=== PATIENT | female | born 1955 | race Caucasian/White ===

== ENCOUNTER 2017-04-14 21:09 | Emergency (ER) | payer BC ==
[2017-04-14 21:23] VITALS: BP 228/128; PULSE 96; TEMP 98.6; BMI 28.1
[2017-04-14] MEDS ORDERED: AMOX TR/POT CLAV 875MG/125MG TABLETS (FP) PO ONE (22:26)
--- NOTE | 2017-04-14 22:26 | PDOC ---
History of Present Illness - General Chief Complaint: Redness To Affected Area Stated Complaint: RH 1ST FINGER REDNESS Time Seen by Provider: 04/14/17 21:15 Past History - Past Medical History Allergies/Adverse Reactions: Allergies Allergy/AdvReac Type Severity Reaction Status Date / Time No Known Allergies Allergy Unverified 04/14/17 21:10 Home Medications: Ambulatory Orders Amox-Tr/K Cl [Augmentin - 875Mg Tablet] 1 tab PO BID #14 tablet 04/14/17 COPD: No - Suicide/Smoking/Psychosocial Hx Smoking History: Current some day smoker Information on smoking cessation initiated: Yes 'Breaking Loose' booklet given: 04/14/17 *Physical Exam - Vital Signs Last Vital Signs Temp Pulse Resp BP Pulse Ox 98.6 F 96 H 16 228/128 100 04/14/17 21:11 04/14/17 21:11 04/14/17 21:11 04/14/17 21:11 04/14/17 21:11 *DC/Admit/Observation/Transfer Diagnosis at time of Disposition: Paronychia of right thumb - Discharge Dispostion Disposition: HOME Condition at time of disposition: Stable - Referrals Referrals: Arthur Kevin MD [Staff Physician] - - Patient Instructions Printed Discharge Instructions: Paronychia Additional Instructions: Augmentin 875/125 twice a day for one week (take with food) Warm soaks to right thumb for 15 minutes at least 3 times a day Return to ER immediately if you have worsening pain with movement, fever or red streaking Follow-up with your general doctor or hand surgeon (Dr. Kevin) within 5-7 days for drainage as discussed - Post Discharge Activity
[2017-04-14] MEDS ORDERED: AMOX TR/POT CLAV 875MG/125MG TABLETS (FP) ONE (22:32)
== END 2017-04-14 22:40 | disposition home or self-care (01) ==
LOC: FER 21:09
DX: L03.011 Cellulitis of right finger (principal); F17.210 Nicotine dependence, cigarettes, uncomplicated
CPT/HCPCS: 99281-25

== ENCOUNTER 2022-01-08 14:47 | Observation (INO) | payer BC ==
[2022-01-08 18:31] LABS: BASO % 0.5 % (0-2.0); EOS % 0.8 % (0-4.5); HEMATOCRIT 18.7 % (32.4-45.2); LYMPH % 15.3 % (8-40); MCHC 30.4 g/dl (32.0-36.0); MEAN CELL VOLUME 59.4 fl (80-96); MEAN PLT VOLUME 8.4 fl (7.5-11.1); MONO % 10.3 % (3.8-10.2); NEUT % 73.1 % (42.8-82.8); PLATELET COUNT 312 10^3/uL (134-434); RBC 3.14 M/mm3 (3.60-5.2); RDW 19.3 % (11.6-15.6); WHITE BLOOD COUNT 8.9 K/mm3 (4.0-10.0)
[2022-01-08 18:33] LABS: MCH 18.1 pg (25.7-33.7)
[2022-01-08 18:34] LABS: HEMOGLOBIN 5.7 GM/dL (10.7-15.3)
[2022-01-08 18:48] LABS: CALCIUM 9.2 mg/dL (8.5-10.1)
[2022-01-08 18:49] LABS: ALBUMIN 3.3 g/dl (3.4-5.0)
[2022-01-08 18:52] LABS: CREATININE 0.8 mg/dL (0.55-1.3)
[2022-01-08 18:54] LABS: BILIRUBIN,TOTAL 0.2 mg/dL (0.2-1); TOT PROT 6.7 g/dl (6.4-8.2)
[2022-01-08 18:55] LABS: ANISOCYTOSIS 3+; MACROCYTOSIS 0; TARGET CELLS 2+
[2022-01-08] MEDS ORDERED: DOCUSATE SODIUM 100 MG CAPSULE (FP) PO PRN (23:19)
[2022-01-08] MEDS ORDERED: FAMOTIDINE 20 MG/50 ML IVPB 20 MG/50 ML MG IVPB ONE (23:28)
[2022-01-09] MEDS ORDERED: FAMOTIDINE 20 MG/50 ML IVPB 20 MG/50 ML MG IVPB ONE (02:30)
[2022-01-09] MEDS ORDERED: ACETAMINOPHEN 325 MG TABLET (FP) PO PRN (07:25)
[2022-01-09 08:25] LABS: BASO % 1.1 % (0-2.0); EOS % 2.1 % (0-4.5); HEMATOCRIT 27.8 % (32.4-45.2); HEMOGLOBIN 8.8 GM/dL (10.7-15.3); LYMPH % 18.3 % (8-40); MCH 21.1 pg (25.7-33.7); MCHC 31.6 g/dl (32.0-36.0); MEAN CELL VOLUME 66.5 fl (80-96); MEAN PLT VOLUME 8.2 fl (7.5-11.1); MONO % 9.1 % (3.8-10.2); NEUT % 69.4 % (42.8-82.8); PLATELET COUNT 307 10^3/uL (134-434); RBC 4.19 M/mm3 (3.60-5.2); RDW 27.3 % (11.6-15.6); RETICULOCYTES 1.56 % (0.5-1.5); WHITE BLOOD COUNT 7.4 K/mm3 (4.0-10.0)
[2022-01-09 08:33] LABS: INR 1.03 (0.83-1.09); PROTHROMBIN TIME (PATIENT) 11.8 SEC (9.7-13.0)
[2022-01-09 08:34] LABS: ACTIVATED PTT 26.9 SECONDS (25.2-36.5)
[2022-01-09 08:54] LABS: BLOOD UREA NITROGEN 12.6 mg/dL (7-18)
[2022-01-09 08:55] LABS: CALCIUM 9.3 mg/dL (8.5-10.1)
[2022-01-09 08:56] LABS: MAGNESIUM 2.4 mg/dL (1.8-2.4); PHOSPHOROUS 3.2 mg/dL (2.5-4.9)
[2022-01-09 08:58] LABS: CREATININE 0.8 mg/dL (0.55-1.3)
[2022-01-09] MEDS: DEXTROSE 5%-NORMAL SALINE 1,000 ML IV SCH (09:09)
[2022-01-09] MEDS: amLODIPine BESYLATE 5 MG TABLET (FP) PO SCH (09:14)
[2022-01-09] MEDS ORDERED: IRON SUCROSE INJECTION 200 MG in SODIUM CHLORIDE 90 ML IVPB ONE (10:30)
[2022-01-09 11:05] LABS: ALBUMIN 3.6 g/dl (3.4-5.0)
[2022-01-09] MEDS: hydrALAZINE HCL 20 MG/ML VIAL IM PRN ×2 (11:06→21:32)
[2022-01-09 11:08] LABS: BILIRUBIN,DIRECT 0.3 mg/dL (0.0-0.2)
[2022-01-09 11:10] LABS: BILIRUBIN,TOTAL 1.2 mg/dL (0.2-1); TOT PROT 7.3 g/dl (6.4-8.2)
[2022-01-09 11:34] LABS: EPI CELLS 18 /uL (0-25.1); HYALINE CASTS 1 /uL (0-3.1); PH,URINE 7.5 (5.0-8.0); URINE APPEARANCE CLOUDY; URINE BACTERIA 679 /uL (0-1359); URINE BILIRUBIN NEGATIVE (NEGATIVE); URINE COLOR YELLOW; URINE GLUCOSE (UA) NEGATIVE (NEGATIVE); URINE KETONE NEGATIVE (NEGATIVE); URINE LEUK ESTERASE 3+ (NEGATIVE); URINE NITRITE NEGATIVE (NEGATIVE); URINE PROTEIN NEGATIVE (NEGATIVE); URINE RBC 11 /uL (0-23.9); URINE UROBILINOGEN 0.2 mg/dL (0.2-1.0); URINE WBC 160 /uL (0-25.8)
[2022-01-09] MEDS: LOSARTAN POTASSIUM 50 MG TABLET PO SCH (14:18)
[2022-01-09 19:43] LABS: EPI CELLS 6 /uL (0-25.1); HYALINE CASTS 1 /uL (0-3.1); PH,URINE 6.5 (5.0-8.0); URINE APPEARANCE Error; URINE BACTERIA 457 /uL (0-1359); URINE BILIRUBIN NEGATIVE (NEGATIVE); URINE COLOR DK YELLOW; URINE GLUCOSE (UA) NEGATIVE (NEGATIVE); URINE KETONE NEGATIVE (NEGATIVE); URINE LEUK ESTERASE 3+ (NEGATIVE); URINE NITRITE NEGATIVE (NEGATIVE); URINE PROTEIN NEGATIVE (NEGATIVE); URINE RBC 36 /uL (0-23.9); URINE WBC 208 /uL (0-25.8)
[2022-01-09 20:07] LABS: PHENCYCLIDINE,URINE NEGATIVE (NEGATIVE); URINE BARBITURATES NEGATIVE (NEGATIVE); URINE BENZODIAZEPINES NEGATIVE (NEGATIVE)
[2022-01-09 20:09] LABS: COCAINE, UR NEGATIVE (NEGATIVE); OPIATES, URI NEGATIVE (NEGATIVE)
[2022-01-09 20:16] LABS: METHADONE, UR NEGATIVE (NEGATIVE); URINE AMPHETAMINES NEGATIVE (NEGATIVE)
[2022-01-09] MEDS: THIAMINE HCL 200 MG/2 ML VIAL IVPB SCH (21:32)
[2022-01-09] MEDS: PANTOPRAZOLE 40 MG TABLET PO SCH (21:33)
[2022-01-09] MEDS: POLYETHYLENE GLYCOL (HEALTHYLAX) 3350 17 GM PACKET PO SCH (21:33)
[2022-01-10] MEDS: THIAMINE HCL 200 MG/2 ML VIAL IVPB SCH ×3 (05:28→20:18)
[2022-01-10 09:21] LABS: BASO % 1.2 % (0-2.0); EOS % 1.2 % (0-4.5); HEMATOCRIT 27.1 % (32.4-45.2); HEMOGLOBIN 8.5 GM/dL (10.7-15.3); LYMPH % 13.1 % (8-40); MCH 20.5 pg (25.7-33.7); MCHC 31.3 g/dl (32.0-36.0); MEAN CELL VOLUME 65.6 fl (80-96); MEAN PLT VOLUME 8.7 fl (7.5-11.1); MONO % 6.9 % (3.8-10.2); NEUT % 77.6 % (42.8-82.8); PLATELET COUNT 287 10^3/uL (134-434); RBC 4.13 M/mm3 (3.60-5.2); WHITE BLOOD COUNT 8.5 K/mm3 (4.0-10.0)
[2022-01-10 09:52] LABS: CALCIUM 9.1 mg/dL (8.5-10.1)
[2022-01-10 09:53] LABS: ALBUMIN 3.5 g/dl (3.4-5.0); BLOOD UREA NITROGEN 11.6 mg/dL (7-18)
[2022-01-10 09:57] LABS: BILIRUBIN,TOTAL 1.2 mg/dL (0.2-1); CREATININE 0.8 mg/dL (0.55-1.3)
[2022-01-10 09:58] LABS: TOT PROT 6.8 g/dl (6.4-8.2)
[2022-01-10] MEDS ORDERED: THIAMINE HCL 100 MG TABLET (FP) PO SCH (10:00)
[2022-01-10] MEDS: PANTOPRAZOLE 40 MG TABLET PO SCH ×2 (10:05→21:21)
[2022-01-10] MEDS: amLODIPine BESYLATE 5 MG TABLET (FP) PO SCH (10:05)
[2022-01-10] MEDS: POLYETHYLENE GLYCOL (HEALTHYLAX) 3350 17 GM PACKET PO SCH ×2 (10:05→21:21)
[2022-01-10] MEDS: LOSARTAN POTASSIUM 50 MG TABLET PO SCH (10:05)
[2022-01-10] MEDS: DEXTROSE 5%-NORMAL SALINE 1,000 ML IV SCH ×2 (12:19→21:23)
[2022-01-11] MEDS ORDERED: traMADol HCL 50 MG TABLET PO ONE (04:00)
[2022-01-11] MEDS: THIAMINE HCL 200 MG/2 ML VIAL IVPB SCH ×3 (04:02→22:12)
[2022-01-11 07:58] LABS: INR 1.04 (0.83-1.09)
[2022-01-11] MEDS ORDERED: PEG 3350/NA SULF BICARB CL/KCL 4000 ML SOLN.RECON PO ONE ×2 (09:00→17:00)
[2022-01-11] MEDS ORDERED: CEFTRIAXONE 1,000 GM in DEXTROSE 5%-WATER - 50 ML IVPB SCH (10:00)
[2022-01-11] MEDS: LOSARTAN POTASSIUM 50 MG TABLET PO SCH (10:20)
[2022-01-11] MEDS: DEXTROSE 5%-NORMAL SALINE 1,000 ML IV SCH (10:20)
[2022-01-11] MEDS: amLODIPine BESYLATE 5 MG TABLET (FP) PO SCH (10:20)
[2022-01-11] MEDS: PANTOPRAZOLE 40 MG TABLET PO SCH ×2 (10:20→22:12)
[2022-01-11] MEDS: POLYETHYLENE GLYCOL (HEALTHYLAX) 3350 17 GM PACKET PO SCH ×2 (10:20→22:12)
[2022-01-11 10:25] LABS: ALBUMIN 3.6 g/dl (3.4-5.0)
[2022-01-11 10:27] LABS: BILIRUBIN,DIRECT 0.7 mg/dL (0.0-0.2)
[2022-01-11 10:29] LABS: TOT PROT 7.2 g/dl (6.4-8.2)
[2022-01-11 10:30] LABS: BILIRUBIN,TOTAL 1.4 mg/dL (0.2-1)
[2022-01-11] MEDS ORDERED: IRON SUCROSE INJECTION 200 MG in SODIUM CHLORIDE 90 ML IVPB ONE (15:00)
[2022-01-11] MEDS ORDERED: BISACODYL 5 MG TABLET.DR (FP) PO ONE (16:00)
[2022-01-12] MEDS: THIAMINE HCL 200 MG/2 ML VIAL IVPB SCH ×2 (04:54→13:05)
[2022-01-12 09:02] LABS: INR 1.08 (0.83-1.09); PROTHROMBIN TIME (PATIENT) 12.4 SEC (9.7-13.0)
[2022-01-12 09:07] LABS: BASO % 1.1 % (0-2.0); EOS % 1.5 % (0-4.5); HEMATOCRIT 26.8 % (32.4-45.2); HEMOGLOBIN 8.5 GM/dL (10.7-15.3); LYMPH % 15.5 % (8-40); MCH 21.1 pg (25.7-33.7); MCHC 31.9 g/dl (32.0-36.0); MEAN CELL VOLUME 66.3 fl (80-96); MEAN PLT VOLUME 8.3 fl (7.5-11.1); NEUT % 72.9 % (42.8-82.8); PLATELET COUNT 221 10^3/uL (134-434); RBC 4.04 M/mm3 (3.60-5.2); RDW 28.9 % (11.6-15.6); WHITE BLOOD COUNT 5.7 K/mm3 (4.0-10.0)
[2022-01-12 09:24] LABS: ALBUMIN 3.5 g/dl (3.4-5.0); CALCIUM 9.1 mg/dL (8.5-10.1)
[2022-01-12 09:25] LABS: BLOOD UREA NITROGEN 7.3 mg/dL (7-18)
[2022-01-12 09:27] LABS: BILIRUBIN,DIRECT 0.5 mg/dL (0.0-0.2)
[2022-01-12 09:28] LABS: CREATININE 0.7 mg/dL (0.55-1.3)
[2022-01-12 09:29] LABS: TOT PROT 6.9 g/dl (6.4-8.2)
[2022-01-12] MEDS: LOSARTAN POTASSIUM 50 MG TABLET PO SCH (09:35)
[2022-01-12] MEDS: DEXTROSE 5%-NORMAL SALINE 1,000 ML IV SCH (09:35)
[2022-01-12] MEDS: PANTOPRAZOLE 40 MG TABLET PO SCH ×2 (09:35→21:02)
[2022-01-12] MEDS: amLODIPine BESYLATE 5 MG TABLET (FP) PO SCH (09:35)
[2022-01-12] MEDS: POLYETHYLENE GLYCOL (HEALTHYLAX) 3350 17 GM PACKET PO SCH ×2 (09:35→21:02)
[2022-01-12 09:51] LABS: ANISOCYTOSIS 3+; MACROCYTOSIS 0
[2022-01-12] MEDS: KCL 10 MEQ IVPB 10 MEQ/100 ML INFUS.BAG IVPB SCH ×3 (11:51→14:21)
[2022-01-12 12:18] LABS: URIC ACID 2.8 mg/dL (2.6-7.2)
[2022-01-12] MEDS ORDERED: BISACODYL 5 MG TABLET.DR (FP) PO ONE (16:00)
[2022-01-12] MEDS ORDERED: POLYETHYLENE GLYCOL 3350 255 GM BTL PO ONE (17:00)
[2022-01-12] MEDS ORDERED: MELATONIN 5 MG TABLETS PO ONE (19:46)
[2022-01-13 08:10] LABS: BASO % 1.3 % (0-2.0); EOS % 1.9 % (0-4.5); HEMOGLOBIN 8.9 GM/dL (10.7-15.3); LYMPH % 16.4 % (8-40); MCH 20.8 pg (25.7-33.7); MCHC 30.8 g/dl (32.0-36.0); MEAN CELL VOLUME 67.6 fl (80-96); MEAN PLT VOLUME 8.5 fl (7.5-11.1); MONO % 7.8 % (3.8-10.2); NEUT % 72.6 % (42.8-82.8); PLATELET COUNT 224 10^3/uL (134-434); RBC 4.29 M/mm3 (3.60-5.2); RDW 31.4 % (11.6-15.6); WHITE BLOOD COUNT 7.3 K/mm3 (4.0-10.0)
[2022-01-13 08:41] LABS: ALBUMIN 3.6 g/dl (3.4-5.0); BLOOD UREA NITROGEN 9.5 mg/dL (7-18); CALCIUM 9.3 mg/dL (8.5-10.1)
[2022-01-13 08:44] LABS: BILIRUBIN,DIRECT 0.8 mg/dL (0.0-0.2); CREATININE 0.7 mg/dL (0.55-1.3)
[2022-01-13 08:46] LABS: BILIRUBIN,TOTAL 1.7 mg/dL (0.2-1); TOT PROT 7.2 g/dl (6.4-8.2)
[2022-01-13] MEDS: PANTOPRAZOLE 40 MG TABLET PO SCH (09:59)
[2022-01-13] MEDS: POLYETHYLENE GLYCOL (HEALTHYLAX) 3350 17 GM PACKET PO SCH (09:59)
[2022-01-13] MEDS: LOSARTAN POTASSIUM 50 MG TABLET PO SCH (09:59)
[2022-01-13] MEDS: amLODIPine BESYLATE 5 MG TABLET (FP) PO SCH (09:59)
[2022-01-13 13:12] LABS: GLIADIN ANTIBODY IGA 3 units (0-19); GLIADIN ANTIBODY IGG 2 units (0-19); TRANSGLUTAMINASE IGG < 2 U/mL (0-5)
[2022-01-13 14:13] VITALS: BP 145/75; PULSE 103; RESP 18; TEMP 98.2
[2022-01-13] MEDS ORDERED: POTASSIUM CHLORIDE ORAL LIQUID 20 MEQ/15 ML PO ONE (14:25)
== END 2022-01-13 15:18 | disposition home or self-care (01) ==
LOC: JER 14:47 → JERBED 20:52 → J4S 01-09 01:11
PROVIDERS: ADMIT Internal Medicine; ATTEND Family Medicine
PROC: 0DB98ZX Excision of Duodenum, Via Natural or Artificial Opening Endoscopic, Diagnostic (ICD-10-PCS; principal; 2022-01-08)
PROC: 3E033GC Introduction of Other Therapeutic Substance into Peripheral Vein, Percutaneous Approach (ICD-10-PCS; 2022-01-08)
PROC: 3E023GC Introduction of Other Therapeutic Substance into Muscle, Percutaneous Approach (ICD-10-PCS; 2022-01-08)
PROC: 30233N1 Transfusion of Nonautologous Red Blood Cells into Peripheral Vein, Percutaneous Approach (ICD-10-PCS; 2022-01-08)
PROC: 0DB68ZX Excision of Stomach, Via Natural or Artificial Opening Endoscopic, Diagnostic (ICD-10-PCS; 2022-01-09)
PROC: 0DB58ZX Excision of Esophagus, Via Natural or Artificial Opening Endoscopic, Diagnostic (ICD-10-PCS; 2022-01-09)
PROC: 0DJD8ZZ Inspection of Lower Intestinal Tract, Via Natural or Artificial Opening Endoscopic (ICD-10-PCS; 2022-01-09)
PROC: 0DBM8ZX Excision of Descending Colon, Via Natural or Artificial Opening Endoscopic, Diagnostic (ICD-10-PCS; 2022-01-13)
PROC: 0DBL8ZX Excision of Transverse Colon, Via Natural or Artificial Opening Endoscopic, Diagnostic (ICD-10-PCS; 2022-01-13)
PROC: 0DBP8ZX Excision of Rectum, Via Natural or Artificial Opening Endoscopic, Diagnostic (ICD-10-PCS; 2022-01-13)
DX: I50.9 Heart failure, unspecified (principal); K22.2 Esophageal obstruction; K44.9 Diaphragmatic hernia without obstruction or gangrene; K22.70 Barrett's esophagus without dysplasia; K25.3 Acute gastric ulcer without hemorrhage or perforation; K62.1 Rectal polyp; D12.3 Benign neoplasm of transverse colon; K63.89 Other specified diseases of intestine; K29.50 Unspecified chronic gastritis without bleeding; K31.9 Disease of stomach and duodenum, unspecified; K21.00 Gastro-esophageal reflux disease with esophagitis, without bleeding; I10 Essential (primary) hypertension; R74.01 Elevation of levels of liver transaminase levels; E04.1 Nontoxic single thyroid nodule; Z87.891 Personal history of nicotine dependence; G93.89 Other specified disorders of brain; G92.8 Other toxic encephalopathy; R92.1 Mammographic calcification found on diagnostic imaging of breast; R94.5 Abnormal results of liver function studies; K76.0 Fatty (change of) liver, not elsewhere classified; N39.0 Urinary tract infection, site not specified
CPT/HCPCS: 36415; 36430; 70450-TC; 71046-TC-FY; 74177-TC; 76700-TC; 76705-TC; 80048; 80053; 80061; 80076; 80307; 81003; 82105; 82140; 82150; 82272; 82550; 82607; 82728; 82746; 82784; 83010; 83021; 83516; 83540; 83550; 83615; 83690; 83735; 84100; 84155; 84165; 84443; 84550; 85025; 85045; 85610; 85660; 85730; 86038; 86140; 86301; 86334; 86704; 86769; 86780; 86803; 86850; 86900; 86901; 86922; 87040; 87086; 87340; 87517; 88305-TC; 88342-TC; 93005; 93010; 99285-25; C9803-CS; G0378; J1756; P9058; Q9967; U0003; U0005

== ENCOUNTER 2022-04-02 19:23 | Emergency (ER) | payer BC ==
[2022-04-02 19:31] VITALS: RESP 18; TEMP 98.8; BMI 23.5
[2022-04-02 20:33] VITALS: BP 140/95; PULSE 111
== END 2022-04-02 20:38 | disposition home or self-care (01) ==
LOC: FER 19:23
DX: R51.9 Headache, unspecified (principal); I10 Essential (primary) hypertension
CPT/HCPCS: 99283-25